=== PATIENT | female | born 1955 | race Caucasian/White ===

== ENCOUNTER 2020-04-05 15:12 | Outpatient (CLI) | payer MEDICARE ==
--- NOTE | 2020-04-05 17:12 | MRI ---
MRI OF THE LEFT KNEE WITHOUT CONTRAST: 04/05/20 HISTORY: Pain. COMPARISON: Radiograph 03/31/2020. FINDINGS: MEDIAL MENISCUS: Intact. LATERAL MENISCUS: Displaced superior articular surface flap tear of the body and posterior horn lateral meniscus sparin g the root. There is loss of volume with posterior lateral gutter extrusion at the flap fragment. ACL and PCL are intact as well as the MCL and LCL. Popliteus tendon is intact. EXTENSOR MECHANISM: The quadriceps tendon, patella and patellar tendon are intact. CARTILAGE: Patellofemoral compartment: There is high grade chondral loss, denuding, on the majority of the superior aspect of the medial and lateral patellar facets with some retaining cartilage of the lateral patellar facet with chondral de lamination. Mild trochlear dysplasia. There is a few high grade fissures of the central trochlea. Medial compartment: There is chondral fissuring and fraying with some low grade delamination and dehydration on the centr al weightbearing surfaces medial femoral condyle, medial tibial plateau with approximately 50% chondr al loss. No full thickness defect. Lateral compartment: On the posterior weightbearing surface lateral tibial plateau, there is chondral denuding. This invol ves approximately 15% of the articular surface. The remainder of the lateral femoral condyle and late ral tibial plateau cartilage has approximately 50% thinning. SOFT TISSUES: Small joint effusion. There is an ossified body of the posterior medial recess measuring up to 7 mm i n size. BONES: Small lateral compartment osteophytes. No acute fracture. No malalignment. No contusion. MUSCLES: Muscle signal and bulk is normal. IMPRESSION: 1. Displaced superior articular surface flap tear of the body of the posterior horn lateral meni scus sparing the root with superolateral gutter extrusion of the flap fragment. There is subsequent h igh grade chondral loss of the posterior 15% weightbearing surface of the tibial plateau. 2. 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 3. Chondral denuding of the majority of the medial patellar facet and portion of the lateral pat ellar facet. 4. 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 POS: HOME
== END 2020-04-05 15:13 | disposition home or self-care (01) ==
LOC: BICMRI 15:12
PROVIDERS: ATTEND Orthopaedic Surgery
DX: M23.92 Unspecified internal derangement of left knee (principal); S83.282A Other tear of lateral meniscus, current injury, left knee, initial encounter; S83.012A Lateral subluxation of left patella, initial encounter; M22.2X2 Patellofemoral disorders, left knee; M94.262 Chondromalacia, left knee